=== PATIENT | male | born 1985 | race Caucasian/White ===

== ENCOUNTER 2021-04-11 10:23 | Emergency (ER) | payer OTHER, SELFPAY ==
[2021-04-11 10:49] VITALS: BP 123/81; PULSE 104; RESP 14; TEMP 36.7; O2SAT 99; BMI 33.5
--- NOTE | 2021-04-11 10:53 | DI.RAD.S_ITS ---
PROCEDURE: XR CHEST 1V INDICATIONS: syncope TECHNIQUE: One view of the chest was acquired. COMPARISON: None. FINDINGS: Surgical changes and devices: None. Lungs and pleura: Reduced lung volume. Lungs are clear. No pleural effusions or pneumothorax. Mediastinum: Mediastinal contours appear normal. Heart size is normal. Bones and chest wall: No suspicious bony lesions. Overlying soft tissues appear unremarkable. IMPRESSION: No acute cardiopulmonary abnormality. Dictated by: Landon Lopes M.D. on 04/11/2021 at 11:14 Approved by: Landon Lopes M.D. on 04/11/2021 at 11:14
[2021-04-11 11:35] VITALS: BP 121/85; PULSE 87; RESP 13
[2021-04-11 11:53] LABS: Add Manual Diff / Slide Review NO; Basophils Absolute Auto 100 /uL (0-100); Basophils Percent Auto 0.8 % (0-2); Eosinophils Absolute Auto 0 /uL (0-450); Eosinophils Percent Auto 0.5 % (2-4); Hematocrit 44.3 % (41-53); Hemoglobin 15.1 g/dL (13.5-17.5); Lymphocytes Absolute Auto 1800 /uL (1100-4500); Lymphocytes Percent Auto 21.1 % (25-40); Mean Corpuscular HGB Conc 34.2 % (30-36); Mean Corpuscular Hemoglobin 30.3 PG (26-34); Mean Corpuscular Volume 88.7 fL (80-100); Monocytes Absolute Auto 400 /uL (0-900); Monocytes Percent Auto 4.7 % (3-14); Neutrophils Absolute Auto 6200 /uL (1500-7000); Neutrophils Percent Auto 72.9 % (50-75); Platelet Count 280 X10^3/uL (150-400); Red Cell Distribution Width 13.1 % (11.6-14.8); White Blood Cell Count 8.5 X10^3/uL (4.5-11.0)
[2021-04-11 12:00] VITALS: BP 109/76; PULSE 87; RESP 14; O2SAT 95
[2021-04-11 12:06] LABS: Alanine Aminotransferase 35 IU/L (<50); Albumin 4.5 g/dL (3.5-5.0); Albumin Globulin Ratio 1.6 (1.0-2.8); Alkaline Phosphatase 72 U/L (38-126); Aspartate Aminotransferase 29 IU/L (17-59); BUN Creatinine Ratio 15.1 (6-22); Bilirubin Total 0.7 mg/dL (0.2-1.3); Blood Urea Nitrogen 14 mg/dL (9-20); Calcium 9.4 mg/dL (8.4-10.2); Carbon Dioxide 29 mmol/L (22-32); Chloride 103 mmol/L (98-107); Creatine Kinase 96 U/L (55-170); Estimated Glomerular Filt Rate > 60.0 mL/min (>60); Globulin 2.9 g/dL (1.7-4.1); Glucose 98 mg/dL (70-100); HEMOLYSIS 15 (0-50); Magnesium 2.3 mg/dL (1.6-2.3); Potassium 4.2 mmol/L (3.4-5.1); Sodium 139 mmol/L (137-145); Total Protein 7.4 g/dL (6.3-8.2)
[2021-04-11 12:13] LABS: D Dimer < 200 ng/mL (<230)
[2021-04-11 12:17] LABS: Troponin I < 0.012 ng/mL (0.01-0.034)
[2021-04-11 12:30] VITALS: BP 114/87; PULSE 90; RESP 15; O2SAT 96
--- NOTE | 2021-04-11 12:36 | ED.SYNCOPE ---
HPI - Syncope General Chief Complaint: Syncope Stated Complaint: Fainted at work during [place] training Time Seen by Provider: 04/11/21 11:42 Source: patient Mode of arrival: Ambulatory Limitations: no limitations History of Present Illness HPI narrative: Patient is a 35-year-old male presents after syncopal episode. He was exercising today pain his [employer] physical test. He was on the aroma she when he suddenly woke up in his friend's arms. Previously they had done other exercises he seemed to be fine he was drinking water both before and after. He is otherwise an active hiker he spent all day moving this past weekend. 2 weeks ago however he had increasing shortness of breath with exercise he was seen and evaluated by his primary care who suggested he may have exercise-induced asthma. He experienced similar symptoms today while on the rowing machine but was having actual wheezing. Denies any chest pain palpitations fever or current shortness of breath. He is overall feeling significantly better. There was no numbness tingling or weakness. He had no rolling of the eyes foaming at the mouth or shaking. Related Data Home Medications Medication Instructions Recorded Confirmed albuterol sulfate 90 mcg/actuation 1 inh INHALATION Q6HR PRN 04/11/21 04/11/21 aerosol inhaler (ProAir HFA) Previous Rx's Medication Instructions Recorded albuterol sulfate 90 mcg/actuation 2 puff INHALATION Q4-6H PRN #8.5 04/11/21 aerosol inhaler gram Allergies Allergy/AdvReac Type Severity Reaction Status Date / Time No Known Drug Allergies Allergy Verified 04/11/21 10:52 Review of Systems Review of Systems Narrative: GENERAL: Denies chills, fatigue, malaise, fever, sweats, travel HEENT: Denies sinus pain, ear pain, sore throat, difficulty swallowing, neck pain RESPIRATORY: Denies dyspnea, cough, wheezing, hemoptysis, sputum. CARDIOVASCULAR: Denies chest pain, palpitations, orthopnea, edema GASTROINTESTINAL: Denies nausea, vomiting, abdominal pain, diarrhea, constipation, melena. : Denies dysuria, frequency, incontinence, hematuria, urinary retention, flank pain. MUSCULOSKELETAL: Denies weakness, joint pain, or bony pain SKIN: No rash, no erythema, no pruritus NEUROLOGIC: + syncope PSYCHIATRIC: No concerning psychosocial issues. 12 point review of systems is negative except for those stated above and HPI Patient History tobacco type: smokeless tobacco alcohol intake frequency: 0-2 drinks per day Substance Use Type: does not use Exam Initial Vital Signs Initial Vital Signs: Vital Signs Temperature 98.1 F 04/11/21 10:49 Pulse Rate 104 H 04/11/21 10:49 Respiratory Rate 14 04/11/21 10:49 Blood Pressure 123/81 04/11/21 10:49 Pulse Oximetry 99 04/11/21 10:49 GENERAL: Alert well-appearing 35-year-old male and in no acute distress. HEENT: Head atraumatic,EOMI, pupils reactive, face symmetric, moist mucous membranes CARDIOVASCULAR: Regular rate and rhythm without murmurs, rubs or gallops. RESPIRATORY: Breath sounds equal bilaterally, no wheezes rales or rhonchi. ABDOMEN: Soft, nontender. Normoactive bowel sounds all 4 quadrants. No guarding or rebound. EXTREMITIES: Normal range of motion, no clubbing or edema. Neurovascularly intact NEUROLOGICAL: Alert and oriented x4.Normal gait and speech. Cranial nerves II through XII grossly intact. Good [id number], good [id number], strength equal bilaterally, no dysarthria or aphasia, sensation in tact to soft touch bilaterally, no visual changes, no facial droop SKIN: Warm, dry, no laceration, no petechiae, no rashes or lesions. Scores PERC Score Age greater than or equal to 50 years: No Heart rate greater than or equal to 100 bpm: No Room Air O2 Sat less than 95%: No Unilateral leg swelling: No Recent trauma or surgery: No Hemoptysis: No Prior PE or DVT: No Hormone Use: No Total PERC Score: 0 Course Orders Ordered: ED Orders 04/11/21 10:40 Urine Microscopic Stat 04/11/21 10:51 EKG-12 Lead Stat 04/11/21 10:53 XR chest 1V Stat Complete Blood Count AUTO DIFF Stat Comprehensive Metabolic Panel Stat Magnesium Stat Troponin & CK Cardiac Panel Stat 04/11/21 11:42 D Dimer Stat Vital Signs Vital signs: Vital Signs - 8 hr 04/11/21 11:35 04/11/21 12:00 04/11/21 12:30 Pulse Rate 87 87 90 Respiratory Rate 13 14 15 Blood Pressure 121/85 109/76 114/87 Pulse Oximetry 95 96 04/11/21 13:00 Pulse Rate 88 Respiratory Rate 24 Blood Pressure 114/83 Pulse Oximetry 97 MDM - Syncope Lab Data Result diagrams: 04/11/21 10:53 04/11/21 10:53 Labs: Lab Results 04/11/21 04/11/21 04/11/21 Range/Units 10:40 10:53 10:53 WBC 8.5 (4.5-11.0) X10^3/uL RBC 5.00 (4.5-5.9) X10^6/uL Hgb 15.1 (13.5-17.5) g/dL Hct 44.3 (41-53) % MCV 88.7 (80-100) fL MCH 30.3 (26-34) PG MCHC 34.2 (30-36) % RDW 13.1 (11.6-14.8) % Plt Count 280 (150-400) X10^3/uL Neut % (Auto) 72.9 (50-75) % Lymph % (Auto) 21.1 L (25-40) % [place] % (Auto) 4.7 (3-14) % Eos % (Auto) 0.5 L (2-4) % Baso % (Auto) 0.8 (0-2) % Neut # (Auto) 6200 (3631-0119) /uL Lymph # (Auto) 1800 (4390-7145) /uL [place] # (Auto) 400 (0-900) /uL Eos # (Auto) 0 (0-450) /uL Baso # (Auto) 100 (0-100) /uL D-Dimer (<230) ng/mL Sodium 139 (137-145) mmol/L Potassium 4.2 (3.4-5.1) mmol/L Chloride 103 (98-107) mmol/L Carbon Dioxide 29 (22-32) mmol/L BUN 14 (9-20) mg/dL Creatinine 0.93 (0.66-1.25) mg/dL Estimated GFR > 60.0 (>60) mL/min BUN/Creatinine Ratio 15.1 (6-22) Glucose 98 (70-100) mg/dL Calcium 9.4 (8.4-10.2) mg/dL Magnesium 2.3 (1.6-2.3) mg/dL Total Bilirubin 0.7 (0.2-1.3) mg/dL AST 29 (17-59) IU/L ALT 35 (<50) IU/L Alkaline Phosphatase 72 (38-126) U/L Total Creatine Kinase 96 (55-170) U/L CK-MB (CK-2) TNP CK-MB (CK-2) Rel Index TNP Troponin I < 0.012 (0.01-0.034) ng/mL Total Protein 7.4 (6.3-8.2) g/dL Albumin 4.5 (3.5-5.0) g/dL Globulin 2.9 (1.7-4.1) g/dL Albumin/Globulin Ratio 1.6 (1.0-2.8) Urine RBC None seen (0-5/HPF) Urine WBC 0-1/hpf (0-5/HPF) Ur Squamous Epith Cells 0-1 /hpf (0-5/HPF) Urine Bacteria None seen (None) Urine Mucus 1+ H (Negative) Ur Culture Indicated? Cult not indicated 04/11/21 Range/Units 11:42 WBC (4.5-11.0) X10^3/uL RBC (4.5-5.9) X10^6/uL Hgb (13.5-17.5) g/dL Hct (41-53) % MCV (80-100) fL MCH (26-34) PG MCHC (30-36) % RDW (11.6-14.8) % Plt Count (150-400) X10^3/uL Neut % (Auto) (50-75) % Lymph % (Auto) (25-40) % [place] % (Auto) (3-14) % Eos % (Auto) (2-4) % Baso % (Auto) (0-2) % Neut # (Auto) (4972-3827) /uL Lymph # (Auto) (7365-4253) /uL [place] # (Auto) (0-900) /uL Eos # (Auto) (0-450) /uL Baso # (Auto) (0-100) /uL D-Dimer < 200 (<230) ng/mL Sodium (137-145) mmol/L Potassium (3.4-5.1) mmol/L Chloride (98-107) mmol/L Carbon Dioxide (22-32) mmol/L BUN (9-20) mg/dL Creatinine (0.66-1.25) mg/dL Estimated GFR (>60) mL/min BUN/Creatinine Ratio (6-22) Glucose (70-100) mg/dL Calcium (8.4-10.2) mg/dL Magnesium (1.6-2.3) mg/dL Total Bilirubin (0.2-1.3) mg/dL AST (17-59) IU/L ALT (<50) IU/L Alkaline Phosphatase (38-126) U/L Total Creatine Kinase (55-170) U/L CK-MB (CK-2) CK-MB (CK-2) Rel Index Troponin I (0.01-0.034) ng/mL Total Protein (6.3-8.2) g/dL Albumin (3.5-5.0) g/dL Globulin (1.7-4.1) g/dL Albumin/Globulin Ratio (1.0-2.8) Urine RBC (0-5/HPF) Urine WBC (0-5/HPF) Ur Squamous Epith Cells (0-5/HPF) Urine Bacteria (None) Urine Mucus (Negative) Ur Culture Indicated? Urine Dip Bedside Urine Glucose Negative Bedside Urine Bilirubin - Negative Bedside Urine Ketone - Negative Urine Specific [place] 1.030 Bedside Urine Occult Blood - Negative Bedside Urine pH 6.0 Bedside Urine Protein + 30 Bedside Urine Urobilinogen 0.2 Bedside Urine Nitrite - Negative Bedside Urine Leukocytes +/- 15 Esterase Imaging Data Chest x-ray: Radiologist's Impression: PROCEDURE:? XR CHEST 1V ? INDICATIONS:? syncope ? TECHNIQUE:? One view of the chest was acquired.? ? COMPARISON:? None. ? FINDINGS:? ? Surgical changes and devices:? None.? ? Lungs and pleura:? Reduced lung volume.? Lungs are clear.? No pleural effusions or pneumothorax.? ? Mediastinum:? Mediastinal contours appear normal.? Heart size is normal.? ? Bones and chest wall:? No suspicious bony lesions.? Overlying soft tissues appear unremarkable.? ? IMPRESSION:? No acute cardiopulmonary abnormality. ? ? Dictated by: Landon Lopes M.D. on 04/11/2021 at 11:14 ? ? ECG Data Interpretation: Normal sinus rhythm rate 97 TN interval 174 QRS 94 QTC 436 Q-waves noted in inferior leads MDM Narrative Medical decision making narrative: Patient has no focal deficits. It sounds as though he may have the beginnings of exercise induced asthma which may have led to his near syncopal episode. No focal deficits, low risk for pulmonary embolism and D-dimer is negative. A this time recommend patient follow-up with PCP in regards to further testing for exercise-induced asthma however he is given prescription for albuterol inhaler. Discharge Plan Departure Patient Disposition: Home Clinical Impression: Vasovagal syncope, Asthma, exercise induced Instructions: DI for Syncope in Adults (Fainting), Exercise and Asthma: Is Exercise Jeopardizing Your Health?, Asthma -- Adult Activity Restrictions/Additional Instructions: *You have been diagnosed with fainting episode, possible exercise-induced asthma *What to do: Be evaluated by her primary care provider for exercise-induced asthma. He may try using inhaler 30 minutes prior to exercise to see if you have improved *Continue to take medications as directed Albuterol inhaler 1-2 puffs 30 minutes prior to exercise *Follow up with your primary care provider in 2-3 days *Return to ER if you should have increasing shortness of breath, recurrent passing out, or any new, worsening or concerning symptoms Prescriptions: New albuterol sulfate 90 mcg/actuation HFA aerosol inhaler 2 puff INHALATION Q4-6H PRN (Reason: shortness of breath or wheezing) Qty: 8.5 0RF No Action albuterol sulfate [ProAir HFA] 90 mcg/actuation HFA aerosol inhaler 1 inh INHALATION Q6HR PRN (Reason: Wheezing) 0RF Referrals: Waqar Gonzalez [Primary Care Provider] -
[2021-04-11 13:00] VITALS: BP 114/83; PULSE 88; RESP 24; O2SAT 97
--- NOTE | 2021-04-11 13:09 | PC.NURSE ---
Spacer teaching performed by RN, pt denies further questions
[2021-04-11 13:17] LABS: Bacteria Urine None Seen; Mucus Urine 1+ (Negative); RBC Urine None Seen (0-5/HPF); Squamous Epithelial Cell Urine 0-1 /HPF (0-5/HPF); WBC Urine 0-1/HPF (0-5/HPF)
[2021-04-11 13:18] LABS: Culture Indicated Urine Cult Not Indicated
== END 2021-04-11 13:10 | disposition home or self-care (01) ==
PROVIDERS: Emergency Provider Emergency Medicine
DX: R55 Syncope and collapse (principal); J45.990 Exercise induced bronchospasm; F17.220 Nicotine dependence, chewing tobacco, uncomplicated
CPT/HCPCS: 36415; 71045; 80053; 81003; 81015; 82550; 83735; 84484; 85025; 85379; 93005; 93010; 99283; 99284